=== PATIENT | male | born 1950 | race Native Hawaiian/Other Pacific Islander ===

== ENCOUNTER 2019-01-13 11:39 | Outpatient (CLI) | payer OTHER | END 2019-01-13 22:55 | disposition home or self-care (01) | LOC: RAD 11:39 | DX: M25.562 Pain in left knee (principal) ==

== ENCOUNTER 2021-03-21 09:38 | Outpatient (CLI) | payer OTHER | END 2021-03-21 20:15 | disposition home or self-care (01) | LOC: US 09:38 | PROVIDERS: ATTEND Internal Medicine | DX: R11.0 Nausea (principal); R10.84 Generalized abdominal pain ==